=== PATIENT | female | born 1970 | race African-American/Black ===

== ENCOUNTER 2019-02-20 08:46 | Emergency (ER) | payer OTHER ==
[~2019-02-20] VITALS: Ht 180.3 cm; Wt 104.1 kg
[2019-02-20] MEDS ORDERED: KETOROLAC TROMETHAMINE 30 MG/ML VIAL IM ONE (09:30)
[2019-02-20] MEDS ORDERED: ACETAMINOPHEN 500 MG TABLET PO ONE (09:30)
[2019-02-20 10:16] VITALS: BP 142/90
== END 2019-02-20 10:17 | disposition home or self-care (01) ==
LOC: EMS 08:47
DX: M54.5 Low back pain (principal); M25.521 Pain in right elbow; M25.552 Pain in left hip; M25.551 Pain in right hip; F17.210 Nicotine dependence, cigarettes, uncomplicated; W18.39XA Other fall on same level, initial encounter; Y93.89 Activity, other specified; Y92.89 Other specified places as the place of occurrence of the external cause; Y99.8 Other external cause status
CPT/HCPCS: 72100; 96372; 99283; 99406; J1885